=== PATIENT | male | born 1960 | race Caucasian/White ===

== ENCOUNTER 2017-06-11 10:50 | Inpatient (IN) ==
[2017-06-11] MEDS ORDERED: Albuterol 2.5 MG/3 ML NEBULIZER IH ONE (11:21)
--- NOTE | 2017-06-11 11:23 | Anesthesia Evaluation PreOp ---
Date of Encounter: 06/11/17 Time of Encounter: 11:22 - Past History Planned Operation: Laparoscopic Sigmoid Colon Resection Cardiac History: HTN Pulmonary History: Smoker (45 years) WELFARE AIDE History: Denies Any Significant HX Other Medical History: Denies Any Significant HX Anesthesia History: No Prior Anesthetic Complications, Past Anesthesia Alcohol Use: none Drug use: none Medications and Allergies Ibuprofen 800 mg PO TID PRN 05/27/17 [History] Lisinopril [Zestril] 20 mg PO DAILY 05/27/17 [History] hydroCHLOROthiazide [Hydrochlorothiazide] 25 mg PO DAILY 06/11/17 [History] 3 Allergy/AdvReac Type Severity Reaction Status Date / Time Penicillins [PCN] AdvReac Rash Verified 05/27/17 10:34 - Meds/Allergy Pre-op Review Medications Reviewed: Yes Allergies Reviewed: Yes Beta Blockers on Current Med List: No Anesthesia Results - Labs Laboratory Tests 06/02/17 06/02/17 14:50 14:50 WBC 10.1 Hgb 15.7 Hct 42.6 Plt Count 320 Sodium 137 Potassium 3.2 L - Imaging EKG: report reviewed (06/02/2017 SINUS RHYTHM INDETERMINATE AXIS INCOMPLETE RIGHT BUNDLE BRANCH BLOCK) Anesthesia Exam O2 Sat Height 1.75 m Height 1.75 m Height 1.75 m Weight 80.739 kg Weight 80.739 kg Weight 80.739 kg O2 Sat by Pulse Oximetry 98 Vital Signs Temp Pulse Resp BP Pulse Ox 98.2 F 85 18 129/90 98 06/11/17 11:25 06/11/17 11:25 06/11/17 11:25 06/11/17 11:25 06/11/17 11:25 Height: 5'9'' Weight: 178 lbs NPO (# of Hours): 8 Pain Scale: 0 Pain Scale Used: Numeric (1 - 10) - HEENT Pupil (Motor): EOMI Mallampati: II Teeth: Normal Oral Opening: Greater than 3 - WELFARE AIDE LOC: Oriented WELFARE AIDE Motor: Normal RUE, Normal LUE, Normal RLE, Normal LLE, Normal Face WELFARE AIDE Sensory: Normal: RUE, LUE, RLE, LLE, Face - Cardiac Rhythm: Regular Murmur: None - Pulmonary Breath Sounds: bilateral Clear Respiratory Effort: Symmetrical Anesthesia Assess/Plan ASA Score: 2 Modified [place] Scale for Level of Consciousness: Cooperative, oriented, and tranquil Anesthetic Plan: General Monitoring Plan: Standard Monitors Recovery Plan: PACU
[2017-06-11] MEDS ORDERED: Ringers Solution, Lactated 1,000 ML IVC SCH (11:30)
[2017-06-11] MEDS ORDERED: Levofloxacin 500 MG/100 ML 500 MG/100 ML BAG IVPB ONE (11:38)
[2017-06-11] MEDS ORDERED: MetroNIDAZOLE 500 MG/100 ML 500 MG/100 ML BAG IVPB ONE (11:39)
--- NOTE | 2017-06-11 11:57 | History & Physical Report ---
Date of Encounter: 06/11/17 Time of Encounter: 11:56 24 Hour HP Update - Instructions Instructions: If the History and Physical is less than 30 days old and was completed prior to A.M. admission and or procedure and has NOT been updated on calendar day of procedure please complete this update prior to performing procedure. - Update Patient reports changes in Medical Condition: No Changes in examination, assessment, or condition: No Changes in Medication: No Preop tests/diagnostics Reviewed: Yes Surgery Remains Indicated: Yes Consent for Planned Operative Procedure(s) Verified: Yes - Pre-Operative Checklist Preoperative Checklist Indicated: Yes Prophylactic Antibiotic Ordered: Yes Home Medications Include Beta Viki: No Beta Viki Taken Today (Day of Surgery): No Beta Viki Taken Yesterday (Day Prior to Surgery): No Is VTE Prophylaxis Indicated?: Yes - Attending Attestation patient seen and examined. no changes in patient health since last evaluation. okay to proceed with surgery
[2017-06-11] MEDS ORDERED: *HR* FentaNYL (PF) 100 MCG/2 ML VIAL ONE ×2 (12:02→16:15)
[2017-06-11] MEDS ORDERED: Dexamethasone 4 MG/ML VIAL ONE (12:02)
[2017-06-11] MEDS ORDERED: *HR* Midazolam HCl 2 MG/2 ML VIAL ONE (12:02)
[2017-06-11] MEDS ORDERED: Lidocaine -MPF 2% 2 ML VIAL ONE (12:02)
[2017-06-11] MEDS ORDERED: *HR* Rocuronium Bromide 50 MG/5 ML VIAL ONE ×2 (12:02→14:27)
[2017-06-11] MEDS ORDERED: Lidocaine -MPF 4% 5 ML AMPUL ONE (12:02)
[2017-06-11] MEDS ORDERED: Ondansetron 4 MG/2 ML VIAL ONE (12:02)
[2017-06-11] MEDS ORDERED: *HR* Propofol 200 MG/20 ML VIAL IVP ONE (12:02)
[2017-06-11] MEDS ORDERED: *HR* Succinylcholine 200 MG/10 ML VIAL IVP ONE (12:02)
--- NOTE | 2017-06-11 12:05 | History & Physical Report ---
Date of Encounter: 06/11/17 Time of Encounter: 12:05 24 Hour HP Update - Instructions Instructions: If the History and Physical is less than 30 days old and was completed prior to A.M. admission and or procedure and has NOT been updated on calendar day of procedure please complete this update prior to performing procedure. - Update Patient reports changes in Medical Condition: No Changes in examination, assessment, or condition: No Changes in Medication: No Preop tests/diagnostics Reviewed: Yes Surgery Remains Indicated: Yes Consent for Planned Operative Procedure(s) Verified: Yes - Pre-Operative Checklist Preoperative Checklist Indicated: Yes Prophylactic Antibiotic Ordered: Yes Home Medications Include Beta Viki: No Is VTE Prophylaxis Indicated?: Yes
[2017-06-11] MEDS ORDERED: *HR* Phenylephrine 10 MG/ML VIAL ONE (12:57)
[2017-06-11] MEDS ORDERED: *HR* HYDROmorphone (PF) 1 MG/ML SYRINGE IVP PRN (13:37)
[2017-06-11] MEDS ORDERED: *HR* Meperidine 25 MG/ML SYRINGE IVP PRN (13:37)
[2017-06-11] MEDS ORDERED: *HR* Labetalol 20 MG/4 ML SYRINGE IVP PRN (13:37)
[2017-06-11] MEDS ORDERED: Ondansetron 4 MG/2 ML VIAL IVP ONE (13:37)
[2017-06-11] MEDS ORDERED: *HR* Promethazine 25 MG/ML VIAL IVP PRN (13:37)
--- NOTE | 2017-06-11 13:51 | Operative Note ---
Date of procedure: 06/11/17 Pre-op diagnosis: Need for left ureteral identification Post-op diagnosis: same Procedure: Cystoscopy, left ureteral stent placement Implants: 5 [place] open-ended catheter. 16 [place] Lim catheter. Complications: none Anesthesia: GETA Surgeon: Pal Light Was there an assistant professor of forestry present: No Estimated blood loss (cc): 0 Specimen: none Condition: stable Disposition: PACU Procedure in Detail: Indications: Mr. Ash is a 56-year-old male who has a history of a colovesical fistula. He is scheduled for a sigmoidectomy and repair. There is need for left ureteral identification with a stent. He elected to undergo a cystoscopy and left ureteral stent placement. He was aware of the risks of the procedure including but not limited to bleeding, infection, injury to other structures, need for further procedures, stent irritation, need for nephrostomy tube, need for open repair, risks otherwise unforeseen, and the risk of anesthesia. He is willing to proceed. Procedure in Detail: After informed consent was obtained the patient was brought back to the operating room and placed in supine position. A time out was performed. General anesthesia was administered and an endotracheal tube was placed. He was then placed in the lithotomy position. He was prepped and draped in the usual sterile fashion. Cystoscopy was performed. The anterior urethra was normal. There was no evidence of bladder tumors. The ureteral orifices were in the normal orthotopic position. There was no duplication of the ureteral orifices. The Sensor wire was placed in the left ureteral orifice. The 5 [place] open ended catheter was then placed up to 25 cm. The scope was removed. A 16 [place] Lim catheter was in place. The stent was secured to the catheter. Dr. Irvin then proceeded with the sigmoidectomy.
[2017-06-11] MEDS ORDERED: Neostigmine Methylsulfate 3 MG/3 ML SYRINGE ONE (16:07)
[2017-06-11] MEDS ORDERED: *HR* HYDROmorphone 2 MG/ML SYRINGE ONE (16:08)
[2017-06-11] MEDS ORDERED: Lacri-Lube 3.5 GM TUBE ONE (16:16)
--- NOTE | 2017-06-11 16:20 | Operative Note ---
Date of procedure: 06/11/17 Pre-op diagnosis: colovesical fistula Post-op diagnosis: same Procedure: No procedure performed. Intraoperative evaluation of the bladder Anesthesia: SOPHIE Surgeon: Eugene Miller Was there an surgical supply assistant present: No Estimated blood loss (cc): 0 Specimen: none Condition: stable Disposition: no change Procedure in Detail: I was called to the operating room by Dr. Irvin to evaluate the bladder after takedown of a suspected colovesical fistula. The area of suspected adhesion was on the right posterior aspect of the bladder. The entire involved area was approximately 2 cm in diameter. No obvious involvement of the bladder lumen. The peritoneum in this area was quite reactive. Because the area was small without obvious involvement of the bladder lumen I elected to test the area for leak prior to performing a formal repair. The bladder was filled with 150 mL of fluid and appropriate distention of the bladder was witnessed. There was no fluid seen emanating from the area of concern. At that point I elected not to proceed with any bladder repair as I felt that the risk for complications from ureteral injury or a large cystotomy were greater then with observation. Plan to leave the catheter in place at least 7 days and perform a formal cystogram prior to removal.
--- NOTE | 2017-06-11 17:33 | Anesthesia Evaluation Post Op ---
Date of Encounter: 06/11/17 Time of Encounter: 17:33 - Vital Signs Vital Signs: Vital Signs/O2 Sat, Most Current Temp Pulse Resp BP Pulse Ox 97.7 F 90 16 129/83 100 06/11/17 17:01 06/11/17 17:21 06/11/17 17:21 06/11/17 17:21 06/11/17 17:21 - Lungs Lungs: Clear Ascult./Percussion - Airway Airway: Non-obstructed - Cardiovascular Regular Rate - Mental Status Mental Status: Alert & Oriented, Answers Appropriately, Baseline Status - Pain Pain Scale: 2 Pain Scale used: Numeric (1 - 10) - Nausea Vomiting Nausea Vomiting: Not Present - Hydration Hydration: NPO, Lim catheter - Discharge PostOp Status: Transfer Patient to floor
[2017-06-11] MEDS ORDERED: Naloxone 0.4 MG/ML INJ IVP PRN ×2 (17:59)
[2017-06-11] MEDS ORDERED: *HR* Morphine 2 MG/ML SYRINGE IVP ONE (17:59)
[2017-06-11] MEDS ORDERED: *HR* Metoprolol 5 MG/5 ML VIAL IVP PRN (17:59)
[2017-06-11 18:40] LABS: Basophils % 0.1 %; Eosinophils % 0.1 %; Hematocrit 40.6 % (37.5-50.1); Hemoglobin 14.1 g/dL (12.9-16.9); Immature Granulocytes % 0.4 % (0-4); Lymphocytes # 0.7 K/mcL (0.6-4.6); Lymphocytes % 4.8 %; Mean Corpuscular HGB Conc 34.7 g/dL (31.6-35.5); Mean Corpuscular Hemoglobin 30.6 pg (28.0-33.3); Mean Corpuscular Volume 88.1 fL (83.0-100.0); Mean Platelet Volume 9.3 fL (9.4-12.4); Monocytes # 0.7 K/mcL (0.0-1.3); Monocytes % 5.1 %; Neutrophils # 12.6 K/mcL (1.6-8.9); Platelet Count 304 K/mcL (140-400); Red Blood Count 4.61 M/mcL (4.19-5.50); Red Cell Distribution Width 13.2 % (11.5-14.5); Segmented Neutrophils % 89.5 %
[2017-06-11 18:59] LABS: BUN/Creatinine Ratio 15 (6-26); Blood Urea Nitrogen 14 mg/dL (6-20); Calcium 8.2 mg/dL (8.6-10.3); Carbon Dioxide 24 mEq/L (23-29); Chloride 108 mEq/L (98-107); Glucose 211 mg/dL (70-105); Osmolality,Calculated 295 (280-300); Phosphorous 2.7 mg/dL (2.7-4.5); Potassium 3.9 mEq/L (3.5-5.1); Sodium 139 mEq/L (136-145); eGFR For African Americans > 60 (> 60); eGFR For Non-African Americans > 60 (> 60)
[2017-06-11] MEDS: *HR* Morphine 30 MG/ 30 ML PCA IVC PRN (23:06)
[2017-06-11] MEDS: D5% in Lactated Ringers 1,000 ML IVC SCH (23:23)
[2017-06-11] MEDS: 0.9 % Sodium Chloride 1,000 ML IVC SCH ×2 (23:25→23:26)
[2017-06-12] MEDS: Nicotine 14 MG PATCH.TD24 TD SCH ×2 (00:48→07:53)
[2017-06-12 07:43] LABS: BUN/Creatinine Ratio 13 (6-26); Blood Urea Nitrogen 12 mg/dL (6-20); Calcium 8.2 mg/dL (8.6-10.3); Carbon Dioxide 26 mEq/L (23-29); Chloride 108 mEq/L (98-107); Glucose 217 mg/dL (70-105); Magnesium 2.1 mg/dL (1.6-2.6); Osmolality,Calculated 294 (280-300); Phosphorous 1.6 mg/dL (2.7-4.5); Potassium 3.8 mEq/L (3.5-5.1); Sodium 139 mEq/L (136-145); eGFR For African Americans > 60 (> 60); eGFR For Non-African Americans > 60 (> 60)
[2017-06-12] MEDS: D5% in Lactated Ringers 1,000 ML IVC SCH (07:54)
[2017-06-12 08:20] LABS: Basophils % 0.1 %; Hematocrit 37.1 % (37.5-50.1); Hemoglobin 12.7 g/dL (12.9-16.9); Immature Granulocytes % 0.4 % (0-4); Lymphocytes % 7.6 %; Mean Corpuscular HGB Conc 34.2 g/dL (31.6-35.5); Mean Corpuscular Hemoglobin 30.1 pg (28.0-33.3); Mean Corpuscular Volume 87.9 fL (83.0-100.0); Mean Platelet Volume 9.6 fL (9.4-12.4); Monocytes % 7.8 %; Neutrophils # 10.8 K/mcL (1.6-8.9); Platelet Count 278 K/mcL (140-400); Red Blood Count 4.22 M/mcL (4.19-5.50); Red Cell Distribution Width 13.1 % (11.5-14.5); Segmented Neutrophils % 84.1 %
[2017-06-12] MEDS ORDERED: *HR* Dextrose 50 % in Water (Syg) 50 ML SYRINGE IVP PRN (12:20)
[2017-06-12] MEDS ORDERED: Dextrose Gel 15 GM/37.5 ML TUBE PO PRN ×2 (12:20)
[2017-06-12] MEDS ORDERED: D5% in Water 1,000 ML IVC PRN (12:20)
--- NOTE | 2017-06-12 12:21 | General Surgery Progress Note ---
<Ravi Rodriguez - Last Filed: 06/12/17 12:18> Date of Encounter: 06/12/17 Time of Encounter: 12:18 - Assessment and Plan (1) Colovesical fistula Current Visit: Yes Status: Acute POD 1 - Left Ureteral stent placement by Dr. Pal Light, and Sigmoidectomy by Dr. Steve Irvin. patient is clinically and hemodynamically stable. - Urology following - replace electrolytes; phos replaced - npo - IS q1hr - ambulated with assistance TID - ct pain management - serial abd exams (2) Tobacco abuse Current Visit: Yes Status: Acute patch for support (3) Elevated blood sugar Current Visit: Yes Status: Acute SSI low dose. closely monitor BG Subjective Patient reports: pain is less, flatus, no bowel movement, afebrile Narrative: denies nausea /vomiting Objective Vital Signs - Last 8 Hours Temp Pulse Resp BP Pulse Ox 06/12/17 12:04 98.3 F 88 16 130/83 95 06/12/17 05:11 97.8 F 87 15 133/75 96 Intake and Output 06/11/17 06/12/17 06/12/17 23:59 07:59 15:59 Intake Total 0 / 0 1060 / 1060 Output Total 1880 / 1880 835 / 835 400 / 400 Balance -1880 / -1880 225 / 225 -400 / -400 Intake: IV Fluids 1000 / 1000 D5% & Lact. Ringers 1000 Ml Bag 1000 / 1000 1,000 ML @ 125 mls/hr IVC .Q8H [facility] Rx#:[id number] Oral 0 / 0 60 / 60 Output: Urine 0 / 0 Estimated Blood Loss 700 / 700 Urine Amount (Catheter) 435 / 435 Catheter 655 / 655 800 / 800 400 / 400 Wound Drainage 90 / 90 35 / 35 Left Lower Abdomen 50 / 50 35 / 35 Other: Weight 80.775 kg Blood Glucose* 197 210 161 Patient Weight 06/12/17 23:59 Weight 80.775 kg - General physical appearance well developed, well nourished, no distress - Eyes normal ocular movement - Respiratory normal expansion, normal respiratory effort, clear to percussion, clear to auscultation - Cardiovascular Cardiovascular exam: Present: RRR - Abdomen Abdomen: Present: bowel sounds present, soft, distended, tender - Psychiatric oriented to time, oriented to person, oriented to place, speech is normal, memory intact - Labs 06/12/17 05:41 06/12/17 05:41 Diabetes panel 06/11/17 06/12/17 Range/Units 18:13 05:41 Sodium 139 139 (136-145) mEq/L Potassium 3.9 3.8 (3.5-5.1) mEq/L Chloride 108 H 108 H (98-107) mEq/L Carbon Dioxide 24 26 (23-29) mEq/L BUN 14 12 (6-20) mg/dL Creatinine 0.95 0.96 (0.70-1.30) mg/dL Glucose 211 H 217 H (70-105) mg/dL Calcium 8.2 L 8.2 L (8.6-10.3) mg/dL Calcium panel 06/11/17 06/12/17 Range/Units 18:13 05:41 Calcium 8.2 L 8.2 L (8.6-10.3) mg/dL Phosphorus 2.7 1.6 L (2.7-4.5) mg/dL Pituitary panel 06/11/17 06/12/17 Range/Units 18:13 05:41 Sodium 139 139 (136-145) mEq/L Potassium 3.9 3.8 (3.5-5.1) mEq/L Chloride 108 H 108 H (98-107) mEq/L Carbon Dioxide 24 26 (23-29) mEq/L BUN 14 12 (6-20) mg/dL Creatinine 0.95 0.96 (0.70-1.30) mg/dL Glucose 211 H 217 H (70-105) mg/dL Calcium 8.2 L 8.2 L (8.6-10.3) mg/dL Adrenal panel 06/11/17 06/12/17 Range/Units 18:13 05:41 Sodium 139 139 (136-145) mEq/L Potassium 3.9 3.8 (3.5-5.1) mEq/L Chloride 108 H 108 H (98-107) mEq/L Carbon Dioxide 24 26 (23-29) mEq/L BUN 14 12 (6-20) mg/dL Creatinine 0.95 0.96 (0.70-1.30) mg/dL Glucose 211 H 217 H (70-105) mg/dL Calcium 8.2 L 8.2 L (8.6-10.3) mg/dL - VTE Documentation of Mechanical Device: Intermittent pneumatic compression device Consult Discharge Plan - Plan Referrals: NONE,PCP [Primary Care Provider] - Patricia Nelson [Family Provider] - <BrandeeSteve Gomez - Last Filed: 06/12/17 13:10> Date of Encounter: 06/12/17 Objective Vital Signs - Last 8 Hours Temp Pulse Resp BP Pulse Ox 06/12/17 12:04 98.3 F 88 16 130/83 95 06/12/17 05:11 97.8 F 87 15 133/75 96 Intake and Output 06/11/17 06/12/17 06/12/17 23:59 07:59 15:59 Intake Total 0 / 0 1060 / 1060 Output Total 1880 / 1880 835 / 835 400 / 400 Balance -1880 / -1880 225 / 225 -400 / -400 Intake: IV Fluids 1000 / 1000 D5% & Lact. Ringers 1000 Ml Bag 1000 / 1000 1,000 ML @ 125 mls/hr IVC .Q8H [facility] Rx#:[id number] Oral 0 / 0 60 / 60 Output: Urine 0 / 0 Estimated Blood Loss 700 / 700 Urine Amount (Catheter) 435 / 435 Catheter 655 / 655 800 / 800 400 / 400 Wound Drainage 90 / 90 35 / 35 Left Lower Abdomen 50 / 50 35 / 35 Other: Weight 80.775 kg Blood Glucose* 197 210 161 Patient Weight 06/12/17 23:59 Weight 80.775 kg - Labs 06/12/17 05:41 06/12/17 05:41 Diabetes panel 06/11/17 06/12/17 Range/Units 18:13 05:41 Sodium 139 139 (136-145) mEq/L Potassium 3.9 3.8 (3.5-5.1) mEq/L Chloride 108 H 108 H (98-107) mEq/L Carbon Dioxide 24 26 (23-29) mEq/L BUN 14 12 (6-20) mg/dL Creatinine 0.95 0.96 (0.70-1.30) mg/dL Glucose 211 H 217 H (70-105) mg/dL Calcium 8.2 L 8.2 L (8.6-10.3) mg/dL Calcium panel 06/11/17 06/12/17 Range/Units 18:13 05:41 Calcium 8.2 L 8.2 L (8.6-10.3) mg/dL Phosphorus 2.7 1.6 L (2.7-4.5) mg/dL Pituitary panel 06/11/17 06/12/17 Range/Units 18:13 05:41 Sodium 139 139 (136-145) mEq/L Potassium 3.9 3.8 (3.5-5.1) mEq/L Chloride 108 H 108 H (98-107) mEq/L Carbon Dioxide 24 26 (23-29) mEq/L BUN 14 12 (6-20) mg/dL Creatinine 0.95 0.96 (0.70-1.30) mg/dL Glucose 211 H 217 H (70-105) mg/dL Calcium 8.2 L 8.2 L (8.6-10.3) mg/dL Adrenal panel 06/11/17 06/12/17 Range/Units 18:13 05:41 Sodium 139 139 (136-145) mEq/L Potassium 3.9 3.8 (3.5-5.1) mEq/L Chloride 108 H 108 H (98-107) mEq/L Carbon Dioxide 24 26 (23-29) mEq/L BUN 14 12 (6-20) mg/dL Creatinine 0.95 0.96 (0.70-1.30) mg/dL Glucose 211 H 217 H (70-105) mg/dL Calcium 8.2 L 8.2 L (8.6-10.3) mg/dL - Attending Attestation I have personally seen and examined the patient. I have reviewed pertinent labs , imaging, progress notes, including this one. I agree with the above assessment and plan and wish to include the following... 56M POD #1 s/p lap converted to open sigmoidectomy with primary anastomosis; cont with current pain regimen monitor cardiac and pulm status IS usage, albuterol PRN 2/2 surgery and smoking history NPO, NG if vomits; anticipating post op ileus cont dvt prophylaxis; MIVF, replete lyte encouage ambulation
--- NOTE | 2017-06-12 13:53 | Operative Note ---
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 The patient was placed in the supine position. Mechanical DVT prophylaxis was initiated. The patient underwent smooth induction of general endotracheal anesthesia. The patient was prepped and draped in the usual fashion. Preoperative antibiotics were given. A timeout was held identifying the correct patient, pathology, and procedure. Everyone was in agreement and we began a procedure. Prior to my procedure, fiona placed L sided ureteral stent. Please see his procedure note for details. Incision to Conversion I started bycreating a supraumbilical incision and via open Lilly technique entered into the abdomen. I then inserted the 10 trocar followed by the camera to visualize the intraabdominal cavity. I then created a 5 mm incision suprapubically and inserted the 5 mm trocar under direct visualization. Roughly 1 handbreadth lateral to the umbilical incision I created another 5 mm incision on the left and inserted another 12 mm trocar under direct visualization on the right. I then inserted the nontraumatic instruments into the 5 mm ports and began the procedure. I was able to identify the sigmoid colon and, starting on the lateral aspect began mobilizing. I was able to identify the white line of toldt toward the pelvic brim. I encountered dense adhesions the further into the pelvis that i went. In addition, the density of the adhesion made the tissue planes difficult to identify. Due to concern for injury bowel or causing itragenic injury, I elected to open. I elongated the incision and entered the abdomen with electrocautery. I loaded the zack-irwin self retaining retractor and continued the procedure. Mobilization to Resection I continued mobilizing laterally toward the pelvic brim. I was able to identify the L ureter by palpating the open ended stent. I began lysing adhesions along the abdominal wall and bladder. The adhesions became denser. in addition there was alot of oozing that was encountered. All bleeding controlled with electrocautery. I then began to mobilize medially. I scored the peritoneum proximally until i found the vascular pedicle. I was able to identify the KRISTIN pedical and ligated it with ligaure. I then continued ligating wth the impact machine towards the rectum. I then used blunt dissection and finger fracture I was dense adhesions until i encountered the densest adhesion, which was the fistulous tract. I was able to take this down and free the imflamed colonic segment. There was a divertculum embedded within the bladder. I called urology to assess the severity of the fistula. Please see their note for details. I then scored again along the mesentery and created a window along the mesorectum. It should be stated that bleeding was encountered which was controlled with hemoclips, Impact ligasure, and suture ligasure. I then used the contour stapler to staple across and stapled distally passed the tinea coli and the pelvic brim to ensure I stapled distal to the sigmoid colon. I then used the automatic purse saúl device to resect the proximal staple line and create a purse string around the distal end. I then dilated using the serial dilators up to size 29. I then inserted the anvil and secured it with the suture. Anastamosis to Closure Down below, ,my life enrichment assistant dilated the recum to a size 29, inserted the stapler and used it to draw the male component of the stapler. I connected that with the female component of the anvil. I then had the stapler removed (the anastamotic ring was intact) removed and tested the anastamosis by filling the pelvis with saline and insufflating air into the rectum. I look for air bubbles , but there was none to be found. I tested the anastamosis twice and saw no air bubbles, ensuring our anastamosis was secure. I then elected not to give the patient an ileostomy due to this finding. At this point, it was time to close. I closed the 12mm fascial inciison with vicryl suture in a figure of 8 fashion. I closed the fascia with looped PDS suture in a running fashion. Prior to this I placed a pelvic drain (19fr charisse drain). I then closed the deep dermal layer with vicryl sutures and 4-0 monocryl in a running subcuticular fashion to close the skin. the remaing incisions were closed with 4-0 monocryl in an interrupted fashion. In addition, the drain was secured to the skin with silk suture. All incision were sealed with dermabond. It should be stated that I did use 0.5% Marcaine as a local anesthetic. The patient tolerated the procedure well and did go back to PACU in stable condition.
[2017-06-12] MEDS: *HR* Morphine 30 MG/ 30 ML PCA IVC PRN (15:24)
[2017-06-12] MEDS: *HR* Enoxaparin 40 MG/0.4 ML SYRINGE SQ SCH (18:29)
[2017-06-12] MEDS: Insulin LISPRO 300 UNITS/3 ML VIAL SQ SCH ×2 (18:29→23:41)
[2017-06-12] MEDS: D5% in 0.45% NACL w KCl 20 MEQ/1,000 ML MLS IVC SCH (18:29)
[2017-06-13] MEDS: Insulin LISPRO 300 UNITS/3 ML VIAL SQ SCH ×3 (05:43→19:33)
--- NOTE | 2017-06-13 08:28 | Urology Progress Note ---
Date of Encounter: 06/13/17 Time of Encounter: 08:26 - Assessment and Plan (1) Colovesical fistula Current Visit: Yes Status: Acute Assessment and plan: urine is clear and cath is draining well. plan is to perform a cystogram 7 days from surgery (wednesday) before considering cath removal. urology service will set this up. If pt is still in hospital will arrange here. if patient is discharged will perform as outpatient and follow in office same day. Progress Note Subjective: feels better Narrative: able to sit at bedside yesterday. cath not "too bothersome" Objective Initial Vital Signs Temp Pulse Resp BP Pulse Ox 98.2 F 85 18 129/90 98 06/11/17 11:25 06/11/17 11:25 06/11/17 11:25 06/11/17 11:25 06/11/17 11:25 - General physical appearance Present: no distress - Additional Exam castillo with clear urine. - Labs 06/12/17 05:41 06/12/17 05:41 - VTE Documentation of Mechanical Device: Intermittent pneumatic compression device Consult Discharge Plan - Plan Referrals: NONE,PCP [Primary Care Provider] - Patricia Nelson [Family Provider] -
[2017-06-13 09:17] LABS: Basophils % 0.3 %; Eosinophils # 0.2 K/mcL (0.0-0.6); Eosinophils % 2.1 %; Hematocrit 35.6 % (37.5-50.1); Hemoglobin 12.2 g/dL (12.9-16.9); Immature Granulocytes % 0.3 % (0-4); Lymphocytes # 1.8 K/mcL (0.6-4.6); Lymphocytes % 16.5 %; Mean Corpuscular HGB Conc 34.3 g/dL (31.6-35.5); Mean Corpuscular Hemoglobin 30.3 pg (28.0-33.3); Mean Corpuscular Volume 88.3 fL (83.0-100.0); Mean Platelet Volume 8.8 fL (9.4-12.4); Monocytes # 0.8 K/mcL (0.0-1.3); Monocytes % 7.6 %; Neutrophils # 7.9 K/mcL (1.6-8.9); Platelet Count 252 K/mcL (140-400); Red Blood Count 4.03 M/mcL (4.19-5.50); Red Cell Distribution Width 13.3 % (11.5-14.5); Segmented Neutrophils % 73.2 %
[2017-06-13] MEDS: Nicotine 14 MG PATCH.TD24 TD SCH (09:31)
[2017-06-13] MEDS: *HR* Enoxaparin 40 MG/0.4 ML SYRINGE SQ SCH (09:32)
[2017-06-13 09:41] LABS: Magnesium 2.2 mg/dL (1.6-2.6); Phosphorous 1.5 mg/dL (2.7-4.5)
[2017-06-13 09:42] LABS: BUN/Creatinine Ratio 15 (6-26); Blood Urea Nitrogen 11 mg/dL (6-20); Carbon Dioxide 23 mEq/L (23-29); Chloride 108 mEq/L (98-107); Glucose 167 mg/dL (70-105); Osmolality,Calculated 287 (280-300); Potassium 3.8 mEq/L (3.5-5.1); Sodium 137 mEq/L (136-145); eGFR For African Americans > 60 (> 60); eGFR For Non-African Americans > 60 (> 60)
[2017-06-13] MEDS: *HR* Morphine 30 MG/ 30 ML PCA IVC PRN (10:40)
--- NOTE | 2017-06-13 12:18 | General Surgery Progress Note ---
<Layla Thomas - Last Filed: 06/13/17 13:23> Date of Encounter: 06/13/17 Time of Encounter: 10:15 - Assessment and Plan (1) Colovesical fistula Current Visit: Yes Status: Acute POD #2 s/p laproscopic converted to open sigmoidectomy with primary anastomosis - Urology following (L ureteral stent placed by Dr. Light), continue castillo cath per urology - Encourage IS hourly while awake - Continue ambulation with assist TID - Electrolyte replacement as needed - NPO - Continue pain management - Serial abdominal exams (2) Tobacco abuse Current Visit: Yes Status: Acute -14mg TD patch substituted for 21mg to provide better relief of cravings (3) Elevated blood sugar Current Visit: Yes Status: Acute -SSI low dose, adjust as needed (4) DVT prophylaxis Current Visit: Yes Status: Acute - Lovenox 40mg SubQ in morning - Ambulation in halls TID with assistance - SCDs Subjective Patient reports: no new complaints, feels better, still having pain, pain is less Narrative: Denies nausea, vomiting. Reports belching. Ambulating with assistance in hallways. Objective Vital Signs - Last 8 Hours Temp Pulse Resp BP Pulse Ox 06/13/17 11:54 98.4 F 95 16 136/84 94 06/13/17 11:00 98.4 F 95 16 136/84 94 06/13/17 09:30 95 06/13/17 07:58 157/91 06/13/17 07:08 98.5 F 90 17 155/100 95 06/13/17 05:23 98.4 F 91 14 129/79 95 Intake and Output 06/12/17 06/13/17 06/13/17 23:59 07:59 15:59 Intake Total 0 / 0 0 / 0 Output Total 0 / 0 675 / 675 Balance 0 / 0 -675 / -675 Intake: Oral 0 / 0 0 / 0 Output: Urine 0 / 0 675 / 675 Catheter 0 / 0 Other: Meal NPO Weight 80.4 kg Blood Glucose* 154 181 Patient Weight 06/13/17 23:59 Weight 80.4 kg - General physical appearance well developed, well nourished, no distress - Eyes normal ocular movement - Respiratory normal expansion, normal respiratory effort, clear to auscultation - Cardiovascular Cardiovascular exam: Present: RRR - Abdomen Abdomen: Present: bowel sounds present, soft, tender. Absent: distended - Neurologic CN 2-12 grossly intact - Psychiatric oriented to time, oriented to person, oriented to place, speech is normal, memory intact - Labs 06/13/17 09:07 06/13/17 09:07 Diabetes panel 06/13/17 Range/Units 09:07 Sodium 137 (136-145) mEq/L Potassium 3.8 (3.5-5.1) mEq/L Chloride 108 H (98-107) mEq/L Carbon Dioxide 23 (23-29) mEq/L BUN 11 (6-20) mg/dL Creatinine 0.75 (0.70-1.30) mg/dL Glucose 167 H (70-105) mg/dL Calcium 8.0 L (8.6-10.3) mg/dL Calcium panel 06/13/17 06/13/17 Range/Units 09:07 09:07 Calcium 8.0 L (8.6-10.3) mg/dL Phosphorus 1.5 L (2.7-4.5) mg/dL Pituitary panel 06/13/17 Range/Units 09:07 Sodium 137 (136-145) mEq/L Potassium 3.8 (3.5-5.1) mEq/L Chloride 108 H (98-107) mEq/L Carbon Dioxide 23 (23-29) mEq/L BUN 11 (6-20) mg/dL Creatinine 0.75 (0.70-1.30) mg/dL Glucose 167 H (70-105) mg/dL Calcium 8.0 L (8.6-10.3) mg/dL Adrenal panel 06/13/17 Range/Units 09:07 Sodium 137 (136-145) mEq/L Potassium 3.8 (3.5-5.1) mEq/L Chloride 108 H (98-107) mEq/L Carbon Dioxide 23 (23-29) mEq/L BUN 11 (6-20) mg/dL Creatinine 0.75 (0.70-1.30) mg/dL Glucose 167 H (70-105) mg/dL Calcium 8.0 L (8.6-10.3) mg/dL - VTE Documentation of Mechanical Device: Intermittent pneumatic compression device Consult Discharge Plan - Plan Referrals: NONE,PCP [Primary Care Provider] - Patricia Nelson [Family Provider] - <Wilmer Irvinlizbet Gomez - Last Filed: 06/13/17 14:17> Date of Encounter: 06/13/17 Objective Vital Signs - Last 8 Hours Temp Pulse Resp BP Pulse Ox 06/13/17 11:54 98.4 F 95 16 136/84 94 06/13/17 11:00 98.4 F 95 16 136/84 94 06/13/17 09:30 95 06/13/17 07:58 157/91 06/13/17 07:08 98.5 F 90 17 155/100 95 Intake and Output 06/12/17 06/13/17 06/13/17 23:59 07:59 15:59 Intake Total 0 / 0 0 / 0 Output Total 0 / 0 675 / 675 Balance 0 / 0 -675 / -675 Intake: Oral 0 / 0 0 / 0 Output: Urine 0 / 0 675 / 675 Catheter 0 / 0 Other: Meal NPO Weight 80.4 kg Blood Glucose* 154 181 Patient Weight 06/13/17 23:59 Weight 80.4 kg - Labs 06/13/17 09:07 06/13/17 09:07 Diabetes panel 06/13/17 Range/Units 09:07 Sodium 137 (136-145) mEq/L Potassium 3.8 (3.5-5.1) mEq/L Chloride 108 H (98-107) mEq/L Carbon Dioxide 23 (23-29) mEq/L BUN 11 (6-20) mg/dL Creatinine 0.75 (0.70-1.30) mg/dL Glucose 167 H (70-105) mg/dL Calcium 8.0 L (8.6-10.3) mg/dL Calcium panel 06/13/17 06/13/17 Range/Units 09:07 09:07 Calcium 8.0 L (8.6-10.3) mg/dL Phosphorus 1.5 L (2.7-4.5) mg/dL Pituitary panel 06/13/17 Range/Units 09:07 Sodium 137 (136-145) mEq/L Potassium 3.8 (3.5-5.1) mEq/L Chloride 108 H (98-107) mEq/L Carbon Dioxide 23 (23-29) mEq/L BUN 11 (6-20) mg/dL Creatinine 0.75 (0.70-1.30) mg/dL Glucose 167 H (70-105) mg/dL Calcium 8.0 L (8.6-10.3) mg/dL Adrenal panel 06/13/17 Range/Units 09:07 Sodium 137 (136-145) mEq/L Potassium 3.8 (3.5-5.1) mEq/L Chloride 108 H (98-107) mEq/L Carbon Dioxide 23 (23-29) mEq/L BUN 11 (6-20) mg/dL Creatinine 0.75 (0.70-1.30) mg/dL Glucose 167 H (70-105) mg/dL Calcium 8.0 L (8.6-10.3) mg/dL - Attending Attestation I have personally seen and examined the patient. I have reviewed pertinent labs , imaging, progress notes, including this one. I agree with the above assessment and plan and wish to include the following... 56M POD#2 s/p lap conv to open sigmoidectomy with primary anastamosis 2/2 diverticulitis complicated by stricture and colovesicular fistula; afebrile, pain controlled, appropriately tender on exam; ambulating; feeling distended and increased belching; continue with pain control, encourage ambulation; await return of bowel function. patient may need NG tube for impending ileus; castillo per urology
[2017-06-13] MEDS ORDERED: Potassium Phosphate 44 MEQ in 0.9 % Sodium Chloride 250 ML IVPB ONE (12:32)
[2017-06-13] MEDS: Nicotine 21 MG PATCH.TD24 TD SCH (15:39)
[2017-06-14] MEDS: Insulin LISPRO 300 UNITS/3 ML VIAL SQ SCH ×4 (01:16→18:12)
[2017-06-14] MEDS: D5% in 0.45% NACL w KCl 20 MEQ/1,000 ML MLS IVC SCH (06:25)
[2017-06-14] MEDS: *HR* Enoxaparin 40 MG/0.4 ML SYRINGE SQ SCH (07:28)
[2017-06-14] MEDS: Nicotine 21 MG PATCH.TD24 TD SCH (07:29)
[2017-06-14 07:55] LABS: BUN/Creatinine Ratio 15 (6-26); Blood Urea Nitrogen 10 mg/dL (6-20); Calcium 8.1 mg/dL (8.6-10.3); Carbon Dioxide 24 mEq/L (23-29); Chloride 108 mEq/L (98-107); Glucose 144 mg/dL (70-105); Osmolality,Calculated 288 (280-300); Potassium 3.6 mEq/L (3.5-5.1); Sodium 138 mEq/L (136-145); eGFR For African Americans > 60 (> 60); eGFR For Non-African Americans > 60 (> 60)
--- NOTE | 2017-06-14 09:23 | General Surgery Progress Note ---
<Sayra Estrada - Last Filed: 06/14/17 11:06> Date of Encounter: 06/14/17 Time of Encounter: 10:00 - Assessment and Plan (1) Colovesical fistula Current Visit: Yes Status: Acute 56M POD#2 s/p lap conv to open sigmoidectomy with primary anastamosis 2/2 diverticulitis complicated by stricture and colovesicular fistula continue with pain control continue to monitor bowel function patient may need NG tube for impending ileus continue to encourage ambulation as tolerated Encourage incentive spirometry Replace electrolytes, prn castillo care per urology (2) Elevated blood sugar Current Visit: Yes Status: Acute Continue accuchecks. Continue SSI low dose, adjust as needed (3) Tobacco abuse Current Visit: Yes Status: Acute Continue management (4) DVT prophylaxis Current Visit: Yes Status: Acute -Lovenox 40mg SubQ in morning - Ambulation in halls TID with assistance - SCDs Subjective Patient reports: feels better, still having pain, no flatus, no bowel movement, afebrile Narrative: Rates abdominal pain 5/10 , feels pain has improved. States "I feel really, really good". Continues belching. Denies appetite this AM. No N/V. No chest pain. No SOB. Objective Vital Signs - Last 8 Hours Temp Pulse Resp BP Pulse Ox 06/14/17 06:45 97.7 F 85 16 137/85 96 06/14/17 05:02 98.6 F 85 15 134/85 97 Intake and Output 06/13/17 06/14/17 06/14/17 23:59 07:59 15:59 Intake Total 250 / 250 1000 / 1000 Output Total 1600 / 1600 370 / 370 0 / 0 Balance -1350 / -1350 630 / 630 0 / 0 Intake: IV Fluids 250 / 250 1000 / 1000 KCl 20mEq IN D5%-0.45 NACL 20 1000 / 1000 meq In 1,000 ml @ 75 mls/hr IVC .[id number] [facility] Rx#:[id number] Oral 0 / 0 0 / 0 Output: Urine 0 / 0 350 / 350 Catheter 1600 / 1600 Wound Drainage 20 / 20 0 / 0 Left Lower Abdomen 20 / 20 0 / 0 Other: Meal NPO Percent of Meal Consumed 0% Blood Glucose* 168 160 - General physical appearance no distress - Eyes normal ocular movement - Respiratory normal expansion, normal respiratory effort, clear to percussion - Cardiovascular Cardiovascular exam: Present: RRR - Abdomen Abdomen: Present: bowel sounds present, soft, tender. Absent: rebound - Incision Incision: Present: clean and dry, intact - Psychiatric oriented to person, oriented to place, speech is normal - Labs 06/13/17 09:07 06/14/17 04:38 Diabetes panel 06/13/17 06/14/17 Range/Units 09:07 04:38 Sodium 137 138 (136-145) mEq/L Potassium 3.8 3.6 (3.5-5.1) mEq/L Chloride 108 H 108 H (98-107) mEq/L Carbon Dioxide 23 24 (23-29) mEq/L BUN 11 10 (6-20) mg/dL Creatinine 0.75 0.68 L (0.70-1.30) mg/dL Glucose 167 H 144 H (70-105) mg/dL Calcium 8.0 L 8.1 L (8.6-10.3) mg/dL Calcium panel 06/13/17 06/13/17 06/14/17 Range/Units 09:07 09:07 04:38 Calcium 8.0 L 8.1 L (8.6-10.3) mg/dL Phosphorus 1.5 L 2.0 L (2.7-4.5) mg/dL Pituitary panel 06/13/17 06/14/17 Range/Units 09:07 04:38 Sodium 137 138 (136-145) mEq/L Potassium 3.8 3.6 (3.5-5.1) mEq/L Chloride 108 H 108 H (98-107) mEq/L Carbon Dioxide 23 24 (23-29) mEq/L BUN 11 10 (6-20) mg/dL Creatinine 0.75 0.68 L (0.70-1.30) mg/dL Glucose 167 H 144 H (70-105) mg/dL Calcium 8.0 L 8.1 L (8.6-10.3) mg/dL Adrenal panel 06/13/17 06/14/17 Range/Units 09:07 04:38 Sodium 137 138 (136-145) mEq/L Potassium 3.8 3.6 (3.5-5.1) mEq/L Chloride 108 H 108 H (98-107) mEq/L Carbon Dioxide 23 24 (23-29) mEq/L BUN 11 10 (6-20) mg/dL Creatinine 0.75 0.68 L (0.70-1.30) mg/dL Glucose 167 H 144 H (70-105) mg/dL Calcium 8.0 L 8.1 L (8.6-10.3) mg/dL - VTE Documentation of Mechanical Device: Intermittent pneumatic compression device Consult Discharge Plan - Plan Referrals: NONE,PCP [Primary Care Provider] - Patricia Nelson [Family Provider] - <Steve Irvin - Last Filed: 06/14/17 11:35> Date of Encounter: 06/14/17 Objective Vital Signs - Last 8 Hours Temp Pulse Resp BP Pulse Ox 06/14/17 10:38 98 F 89 16 165/91 96 06/14/17 06:45 97.7 F 85 16 137/85 96 06/14/17 05:02 98.6 F 85 15 134/85 97 Intake and Output 06/13/17 06/14/17 06/14/17 23:59 07:59 15:59 Intake Total 250 / 250 1000 / 1000 0 / 0 Output Total 1600 / 1600 370 / 370 200 / 200 Balance -1350 / -1350 630 / 630 -200 / -200 Intake: IV Fluids 250 / 250 1000 / 1000 KCl 20mEq IN D5%-0.45 NACL 20 1000 / 1000 meq In 1,000 ml @ 75 mls/hr IVC .[id number] [facility] Rx#:[id number] Oral 0 / 0 0 / 0 0 / 0 Output: Urine 0 / 0 350 / 350 200 / 200 Catheter 1600 / 1600 Wound Drainage 20 / 20 0 / 0 Left Lower Abdomen 20 / 20 0 / 0 Other: Meal NPO Percent of Meal Consumed 0% Blood Glucose* 168 160 - Labs 06/13/17 09:07 06/14/17 04:38 Diabetes panel 06/14/17 Range/Units 04:38 Sodium 138 (136-145) mEq/L Potassium 3.6 (3.5-5.1) mEq/L Chloride 108 H (98-107) mEq/L Carbon Dioxide 24 (23-29) mEq/L BUN 10 (6-20) mg/dL Creatinine 0.68 L (0.70-1.30) mg/dL Glucose 144 H (70-105) mg/dL Calcium 8.1 L (8.6-10.3) mg/dL Calcium panel 06/14/17 Range/Units 04:38 Calcium 8.1 L (8.6-10.3) mg/dL Phosphorus 2.0 L (2.7-4.5) mg/dL Pituitary panel 06/14/17 Range/Units 04:38 Sodium 138 (136-145) mEq/L Potassium 3.6 (3.5-5.1) mEq/L Chloride 108 H (98-107) mEq/L Carbon Dioxide 24 (23-29) mEq/L BUN 10 (6-20) mg/dL Creatinine 0.68 L (0.70-1.30) mg/dL Glucose 144 H (70-105) mg/dL Calcium 8.1 L (8.6-10.3) mg/dL Adrenal panel 06/14/17 Range/Units 04:38 Sodium 138 (136-145) mEq/L Potassium 3.6 (3.5-5.1) mEq/L Chloride 108 H (98-107) mEq/L Carbon Dioxide 24 (23-29) mEq/L BUN 10 (6-20) mg/dL Creatinine 0.68 L (0.70-1.30) mg/dL Glucose 144 H (70-105) mg/dL Calcium 8.1 L (8.6-10.3) mg/dL - Attending Attestation I have personally seen and examined the patient. I have reviewed pertinent labs , imaging, progress notes, including this one. I agree with the above assessment and plan and wish to include the following... 56M POD#3 s/p lap conv to open sigmoidectomy; pain controlled; non peritoneal; abdominal distension, but improved; slight erythema of wound; cont to await return of bowel function; no cellulitis/wound infection at present, but will cont to monitor; ambulate as tolerated
[2017-06-15] MEDS: D5% in 0.45% NACL w KCl 20 MEQ/1,000 ML MLS IVC SCH ×3 (04:27→19:23)
[2017-06-15 07:27] LABS: Basophils % 0.2 %; Eosinophils # 0.2 K/mcL (0.0-0.6); Eosinophils % 2.3 %; Hematocrit 38.5 % (37.5-50.1); Hemoglobin 13.3 g/dL (12.9-16.9); Immature Granulocytes % 0.4 % (0-4); Lymphocytes # 1.1 K/mcL (0.6-4.6); Mean Corpuscular HGB Conc 34.5 g/dL (31.6-35.5); Mean Corpuscular Hemoglobin 30.2 pg (28.0-33.3); Mean Corpuscular Volume 87.3 fL (83.0-100.0); Monocytes # 0.6 K/mcL (0.0-1.3); Monocytes % 6.9 %; Neutrophils # 7.1 K/mcL (1.6-8.9); Platelet Count 319 K/mcL (140-400); Red Blood Count 4.41 M/mcL (4.19-5.50); Segmented Neutrophils % 78.2 %
[2017-06-15 07:35] LABS: BUN/Creatinine Ratio 21 (6-26); Blood Urea Nitrogen 12 mg/dL (6-20); Calcium 7.3 mg/dL (8.6-10.3); Carbon Dioxide 19 mEq/L (23-29); Chloride 111 mEq/L (98-107); Glucose 159 mg/dL (70-105); Osmolality,Calculated 291 (280-300); Potassium 3.8 mEq/L (3.5-5.1); Sodium 139 mEq/L (136-145); eGFR For African Americans > 60 (> 60); eGFR For Non-African Americans > 60 (> 60)
--- NOTE | 2017-06-15 07:40 | General Surgery Progress Note ---
<NatalieSayra - Last Filed: 06/15/17 10:58> Date of Encounter: 06/15/17 Time of Encounter: 07:40 - Assessment and Plan (1) Colovesical fistula Current Visit: Yes Status: Acute 56M POD#4 s/p lap conv to open sigmoidectomy with primary anastamosis 2/2 diverticulitis complicated by stricture and colovesicular fistula continue with pain control continue to monitor bowel function for appropriate progression Will advance diet cautiously. May begin liquid sips 250 ml/shift continue to encourage ambulation as tolerated Encourage incentive spirometry Replace electrolytes, prn castillo care per urology (2) Elevated blood sugar Current Visit: Yes Status: Acute Continue accuchecks. Continue SSI low dose, adjust as needed (3) Tobacco abuse Current Visit: Yes Status: Acute Continue management (4) DVT prophylaxis Current Visit: Yes Status: Acute -Lovenox 40mg SubQ in morning - Ambulation in halls TID with assistance - SCDs Subjective Patient reports: feels better, pain is less, voiding w/o difficulty, flatus Narrative: Patient reports pain at a 2-3/10. Awaits initiation of diet. Objective Vital Signs - Last 8 Hours Temp Pulse Resp BP Pulse Ox 06/15/17 07:32 97.5 F L 104 16 156/98 97 06/15/17 04:02 98.4 F 101 16 152/96 97 Intake and Output 06/14/17 06/14/17 06/15/17 15:59 23:59 07:59 Intake Total 400 / 400 255 / 255 600 / 600 Output Total 400 / 400 330 / 330 270 / 270 Balance 0 / 0 -75 / -75 330 / 330 Intake: IV Fluids 400 / 400 255 / 255 600 / 600 KCl 20mEq IN D5%-0.45 NACL 20 400 / 400 0 / 0 600 / 600 meq In 1,000 ml @ 75 mls/hr IVC .[id number] [facility] Rx#:[id number] Potassium Phosphate 22 MEQ In 0 255 / 255 .9 % Sodium Chloride 250 ML @ 40 mls/hr IVPB ONCE ONE Rx#: [id number] Oral 0 / 0 0 / 0 0 / 0 Output: Urine 300 / 300 Straight Cath 200 / 200 Catheter 200 / 200 0 / 0 250 / 250 Wound Drainage 0 / 0 30 / 30 20 / 20 Left Lower Abdomen 0 / 0 30 / 30 20 / 20 Other: Meal NPO Percent of Meal Consumed 0% Weight 81.3 kg Blood Glucose* 168 168 Patient Weight 06/15/17 23:59 Weight 81.3 kg - Labs 06/15/17 06:57 06/15/17 06:57 Diabetes panel 06/14/17 06/15/17 Range/Units 04:38 06:57 Sodium 138 139 (136-145) mEq/L Potassium 3.6 3.8 (3.5-5.1) mEq/L Chloride 108 H 111 H (98-107) mEq/L Carbon Dioxide 24 19 L (23-29) mEq/L BUN 10 12 (6-20) mg/dL Creatinine 0.68 L 0.56 L (0.70-1.30) mg/dL Glucose 144 H 159 H (70-105) mg/dL Calcium 8.1 L 7.3 L (8.6-10.3) mg/dL Calcium panel 06/14/17 06/15/17 Range/Units 04:38 06:57 Calcium 8.1 L 7.3 L (8.6-10.3) mg/dL Phosphorus 2.0 L 2.0 L (2.7-4.5) mg/dL Pituitary panel 06/14/17 06/15/17 Range/Units 04:38 06:57 Sodium 138 139 (136-145) mEq/L Potassium 3.6 3.8 (3.5-5.1) mEq/L Chloride 108 H 111 H (98-107) mEq/L Carbon Dioxide 24 19 L (23-29) mEq/L BUN 10 12 (6-20) mg/dL Creatinine 0.68 L 0.56 L (0.70-1.30) mg/dL Glucose 144 H 159 H (70-105) mg/dL Calcium 8.1 L 7.3 L (8.6-10.3) mg/dL Adrenal panel 06/14/17 06/15/17 Range/Units 04:38 06:57 Sodium 138 139 (136-145) mEq/L Potassium 3.6 3.8 (3.5-5.1) mEq/L Chloride 108 H 111 H (98-107) mEq/L Carbon Dioxide 24 19 L (23-29) mEq/L BUN 10 12 (6-20) mg/dL Creatinine 0.68 L 0.56 L (0.70-1.30) mg/dL Glucose 144 H 159 H (70-105) mg/dL Calcium 8.1 L 7.3 L (8.6-10.3) mg/dL - VTE Documentation of Mechanical Device: Intermittent pneumatic compression device Consult Discharge Plan - Plan Referrals: NONE,PCP [Primary Care Provider] - Patricia Nelson [Family Provider] - <Steve Irvin - Last Filed: 06/15/17 12:44> Date of Encounter: 06/15/17 Objective Vital Signs - Last 8 Hours Temp Pulse Resp BP Pulse Ox 06/15/17 11:39 97.5 F L 98 15 159/91 15 06/15/17 10:18 97 06/15/17 07:32 97.5 F L 104 16 156/98 97 Intake and Output 06/14/17 06/15/17 06/15/17 23:59 07:59 15:59 Intake Total 255 / 255 600 / 600 Output Total 330 / 330 270 / 270 80 / 80 Balance -75 / -75 330 / 330 -80 / -80 Intake: IV Fluids 255 / 255 600 / 600 KCl 20mEq IN D5%-0.45 NACL 20 0 / 0 600 / 600 meq In 1,000 ml @ 75 mls/hr IVC .[id number] [facility] Rx#:[id number] Potassium Phosphate 22 MEQ In 0 255 / 255 .9 % Sodium Chloride 250 ML @ 40 mls/hr IVPB ONCE ONE Rx#: [id number] Oral 0 / 0 0 / 0 Output: Urine 300 / 300 Catheter 0 / 0 250 / 250 Wound Drainage 30 / 30 20 / 20 80 / 80 Left Lower Abdomen 30 / 30 20 / 20 80 / 80 Other: Meal NPO Weight 81.3 kg Blood Glucose* 168 186 Patient Weight 06/15/17 23:59 Weight 81.3 kg - Labs 06/15/17 06:57 06/15/17 06:57 Diabetes panel 06/15/17 Range/Units 06:57 Sodium 139 (136-145) mEq/L Potassium 3.8 (3.5-5.1) mEq/L Chloride 111 H (98-107) mEq/L Carbon Dioxide 19 L (23-29) mEq/L BUN 12 (6-20) mg/dL Creatinine 0.56 L (0.70-1.30) mg/dL Glucose 159 H (70-105) mg/dL Calcium 7.3 L (8.6-10.3) mg/dL Calcium panel 06/15/17 Range/Units 06:57 Calcium 7.3 L (8.6-10.3) mg/dL Phosphorus 2.0 L (2.7-4.5) mg/dL Pituitary panel 06/15/17 Range/Units 06:57 Sodium 139 (136-145) mEq/L Potassium 3.8 (3.5-5.1) mEq/L Chloride 111 H (98-107) mEq/L Carbon Dioxide 19 L (23-29) mEq/L BUN 12 (6-20) mg/dL Creatinine 0.56 L (0.70-1.30) mg/dL Glucose 159 H (70-105) mg/dL Calcium 7.3 L (8.6-10.3) mg/dL Adrenal panel 06/15/17 Range/Units 06:57 Sodium 139 (136-145) mEq/L Potassium 3.8 (3.5-5.1) mEq/L Chloride 111 H (98-107) mEq/L Carbon Dioxide 19 L (23-29) mEq/L BUN 12 (6-20) mg/dL Creatinine 0.56 L (0.70-1.30) mg/dL Glucose 159 H (70-105) mg/dL Calcium 7.3 L (8.6-10.3) mg/dL - Attending Attestation I have personally seen and examined the patient. I have reviewed pertinent labs , imaging, progress notes, including this one. I agree with the above assessment and plan and wish to include the following... POD#4 s/p lap conv to open sigmoidectomy; doing well post operatively; pain controlled; with bowel function today; still distended on exam; non peritoneal; will plan for sips of clears today; still suspicious for post op ileus; replete lytes; activity as tolerated; observing for continued bowel function
[2017-06-15] MEDS: Insulin LISPRO 300 UNITS/3 ML VIAL SQ SCH ×3 (08:07→19:03)
[2017-06-15] MEDS: Nicotine 21 MG PATCH.TD24 TD SCH (10:11)
[2017-06-15] MEDS: *HR* Enoxaparin 40 MG/0.4 ML SYRINGE SQ SCH (10:12)
[2017-06-15] MEDS ORDERED: Potassium Phosphate 44 MEQ in 0.9 % Sodium Chloride 250 ML IVPB ONE (10:44)
[2017-06-15] MEDS ORDERED: *HR* Metoprolol 5 MG/5 ML VIAL IVP ONE (20:47)
[2017-06-15] MEDS: *HR* Morphine 30 MG/ 30 ML PCA IVC PRN (23:08)
[2017-06-16] MEDS: Insulin LISPRO 300 UNITS/3 ML VIAL SQ SCH ×5 (00:33→20:35)
[2017-06-16] MEDS: D5% in 0.45% NACL w KCl 20 MEQ/1,000 ML MLS IVC SCH ×2 (00:46→13:13)
[2017-06-16] MEDS: *HR* Enoxaparin 40 MG/0.4 ML SYRINGE SQ SCH (05:51)
[2017-06-16 05:54] LABS: Basophils % 0.1 %; Eosinophils # 0.1 K/mcL (0.0-0.6); Eosinophils % 1.5 %; Hematocrit 40.1 % (37.5-50.1); Immature Granulocytes % 0.4 % (0-4); Lymphocytes # 1.5 K/mcL (0.6-4.6); Lymphocytes % 15.8 %; Mean Corpuscular HGB Conc 34.9 g/dL (31.6-35.5); Mean Corpuscular Hemoglobin 30.7 pg (28.0-33.3); Mean Corpuscular Volume 87.9 fL (83.0-100.0); Mean Platelet Volume 8.6 fL (9.4-12.4); Monocytes # 0.8 K/mcL (0.0-1.3); Monocytes % 8.1 %; Neutrophils # 7.1 K/mcL (1.6-8.9); Platelet Count 326 K/mcL (140-400); Red Blood Count 4.56 M/mcL (4.19-5.50); Red Cell Distribution Width 13.3 % (11.5-14.5); Segmented Neutrophils % 74.1 %
[2017-06-16 06:08] LABS: Albumin 3.5 g/dL (3.5-5.7); BUN/Creatinine Ratio 21 (6-26); Blood Urea Nitrogen 15 mg/dL (6-20); Calcium 8.3 mg/dL (8.6-10.3); Carbon Dioxide 25 mEq/L (23-29); Chloride 107 mEq/L (98-107); Glucose 178 mg/dL (70-105); Magnesium 2.4 mg/dL (1.6-2.6); Osmolality,Calculated 285 (280-300); Phosphorous 2.4 mg/dL (2.7-4.5); Potassium 4.2 mEq/L (3.5-5.1); Sodium 135 mEq/L (136-145); eGFR For African Americans > 60 (> 60); eGFR For Non-African Americans > 60 (> 60)
--- NOTE | 2017-06-16 07:45 | General Surgery Progress Note ---
<Sayra Estrada - Last Filed: 06/16/17 13:26> Date of Encounter: 06/16/17 Time of Encounter: 07:44 - Assessment and Plan (1) Colovesical fistula Current Visit: Yes Status: Acute 56M POD#5 s/p lap conv to open sigmoidectomy with primary anastamosis 2/2 diverticulitis complicated by stricture and colovesicular fistula Continue with pain control: D/C [employer]PRESENT[employer]IVE pump, percocet for pain control. Plan to transition to non-opioids, if patient tolerates Continue to monitor bowel function for appropriate progression Will advance diet cautiously.Clear liquids with dietary supplements Continue to encourage ambulation as tolerated, with physical therapy consult Encourage incentive spirometry Replace electrolytes, prn - Lim care per urology (2) Elevated blood sugar Current Visit: Yes Status: Acute Continue accuchecks. Continue SSI, adjust as needed (3) Hypertension Current Visit: Yes Status: Chronic Elevated BP overnight, requiring IV lopressor. Plan to resume patient on home medication Qualifiers: Hypertension type: unspecified Qualified Code(s): I10 - Essential (primary ) hypertension (4) Tobacco abuse Current Visit: Yes Status: Acute Continue management (5) DVT prophylaxis Current Visit: Yes Status: Acute -Lovenox 40mg SubQ in morning - Ambulation in halls TID with assistance - SCDs Subjective Patient reports: feels better, pain is less, tolerating liquids well, flatus, bowel movement, afebrile Narrative: Elevated BP overnight, resolved with IV lopressor. Objective Vital Signs - Last 8 Hours Temp Pulse Resp BP Pulse Ox 06/16/17 07:17 98.5 F 88 14 148/95 97 06/16/17 04:23 97.7 F 85 14 141/93 97 Intake and Output 06/15/17 06/15/17 06/16/17 15:59 23:59 07:59 Intake Total 118 / 118 1000 / 1000 Output Total 160 / 160 1085 / 1085 350 / 350 Balance -160 / -160 -967 / -967 650 / 650 Intake: IV Fluids 1000 / 1000 KCl 20mEq IN D5%-0.45 NACL 20 1000 / 1000 meq In 1,000 ml @ 75 mls/hr IVC .[id number] [facility] Rx#:[id number] Oral 118 / 118 0 / 0 Output: Urine 450 / 450 Catheter 300 / 300 250 / 250 Wound Drainage 160 / 160 335 / 335 100 / 100 Left Lower Abdomen 160 / 160 335 / 335 100 / 100 Other: Meal NPO Stool Size Smear Stool Color Blood Tinged # Bowel Movements 1 Weight 81.148 kg Blood Glucose* 186 216 168 Patient Weight 06/16/17 23:59 Weight 81.148 kg - General physical appearance well developed, no distress - Eyes normal ocular movement - Respiratory normal expansion, normal respiratory effort, clear to auscultation - Abdomen Abdomen: Present: bowel sounds present, soft, non tender - Neurologic normal coordination - Psychiatric oriented to time, oriented to person, oriented to place, speech is normal - Labs 06/16/17 05:43 06/16/17 05:43 Diabetes panel 06/16/17 Range/Units 05:43 Sodium 135 L (136-145) mEq/L Potassium 4.2 (3.5-5.1) mEq/L Chloride 107 (98-107) mEq/L Carbon Dioxide 25 (23-29) mEq/L BUN 15 (6-20) mg/dL Creatinine 0.71 (0.70-1.30) mg/dL Glucose 178 H (70-105) mg/dL Calcium 8.3 L (8.6-10.3) mg/dL Albumin 3.5 (3.5-5.7) g/dL Calcium panel 06/16/17 Range/Units 05:43 Calcium 8.3 L (8.6-10.3) mg/dL Phosphorus 2.4 L (2.7-4.5) mg/dL Albumin 3.5 (3.5-5.7) g/dL Pituitary panel 06/16/17 Range/Units 05:43 Sodium 135 L (136-145) mEq/L Potassium 4.2 (3.5-5.1) mEq/L Chloride 107 (98-107) mEq/L Carbon Dioxide 25 (23-29) mEq/L BUN 15 (6-20) mg/dL Creatinine 0.71 (0.70-1.30) mg/dL Glucose 178 H (70-105) mg/dL Calcium 8.3 L (8.6-10.3) mg/dL Adrenal panel 06/16/17 Range/Units 05:43 Sodium 135 L (136-145) mEq/L Potassium 4.2 (3.5-5.1) mEq/L Chloride 107 (98-107) mEq/L Carbon Dioxide 25 (23-29) mEq/L BUN 15 (6-20) mg/dL Creatinine 0.71 (0.70-1.30) mg/dL Glucose 178 H (70-105) mg/dL Calcium 8.3 L (8.6-10.3) mg/dL Albumin 3.5 (3.5-5.7) g/dL - VTE Documentation of Mechanical Device: Intermittent pneumatic compression device Consult Discharge Plan - Plan Referrals: Steve Irvin MD [Non-Partnered Physician] - 06/24/17 1:35 pm Lakesha Carter CNP [Advanced Practice Nurse] - Pal Light MD [Partnered Physician] - 06/18/17 9:30 am <Steve Irvin - Last Filed: 06/16/17 16:47> Date of Encounter: 06/16/17 Objective Vital Signs - Last 8 Hours Temp Pulse Resp BP Pulse Ox 06/16/17 14:50 98.7 F 90 15 153/95 98 06/16/17 10:24 98.5 F 84 16 156/97 99 Intake and Output 06/16/17 06/16/17 06/16/17 07:59 15:59 23:59 Intake Total 1000 / 1000 120 / 120 Output Total 350 / 350 885 / 885 Balance 650 / 650 -765 / -765 Intake: IV Fluids 1000 / 1000 KCl 20mEq IN D5%-0.45 NACL 20 1000 / 1000 meq In 1,000 ml @ 75 mls/hr IVC .[id number] [facility] Rx#:[id number] Oral 0 / 0 120 / 120 Output: Catheter 250 / 250 575 / 575 Wound Drainage 100 / 100 310 / 310 Left Lower Abdomen 100 / 100 310 / 310 Other: Meal NPO Percent of Meal Consumed 0% Weight 81.148 kg Blood Glucose* 168 Patient Weight 06/16/17 23:59 Weight 81.148 kg - Labs 06/16/17 05:43 06/16/17 05:43 Diabetes panel 06/16/17 Range/Units 05:43 Sodium 135 L (136-145) mEq/L Potassium 4.2 (3.5-5.1) mEq/L Chloride 107 (98-107) mEq/L Carbon Dioxide 25 (23-29) mEq/L BUN 15 (6-20) mg/dL Creatinine 0.71 (0.70-1.30) mg/dL Glucose 178 H (70-105) mg/dL Calcium 8.3 L (8.6-10.3) mg/dL Albumin 3.5 (3.5-5.7) g/dL Calcium panel 06/16/17 Range/Units 05:43 Calcium 8.3 L (8.6-10.3) mg/dL Phosphorus 2.4 L (2.7-4.5) mg/dL Albumin 3.5 (3.5-5.7) g/dL Pituitary panel 06/16/17 Range/Units 05:43 Sodium 135 L (136-145) mEq/L Potassium 4.2 (3.5-5.1) mEq/L Chloride 107 (98-107) mEq/L Carbon Dioxide 25 (23-29) mEq/L BUN 15 (6-20) mg/dL Creatinine 0.71 (0.70-1.30) mg/dL Glucose 178 H (70-105) mg/dL Calcium 8.3 L (8.6-10.3) mg/dL Adrenal panel 06/16/17 Range/Units 05:43 Sodium 135 L (136-145) mEq/L Potassium 4.2 (3.5-5.1) mEq/L Chloride 107 (98-107) mEq/L Carbon Dioxide 25 (23-29) mEq/L BUN 15 (6-20) mg/dL Creatinine 0.71 (0.70-1.30) mg/dL Glucose 178 H (70-105) mg/dL Calcium 8.3 L (8.6-10.3) mg/dL Albumin 3.5 (3.5-5.7) g/dL - Attending Attestation I have personally seen and examined the patient. I have reviewed pertinent labs , imaging, progress notes, including this one. I agree with the above assessment and plan and wish to include the following... POD#5 s/p lap conv to open sigmoidectomy; now with return of bowel function - okay to start clears; - activity as tolerated - pain control with PO pain meds - SLIV when tolerating PO - will re-evaluate in PM before advancing diet
[2017-06-16] MEDS: Nicotine 21 MG PATCH.TD24 TD SCH (09:16)
[2017-06-16] MEDS ORDERED: *HR* Morphine 2 MG/ML SYRINGE IVP PRN (10:49)
[2017-06-16] MEDS ORDERED: Acetaminophen 325 MG TABLET PO PRN (10:49)
[2017-06-16] MEDS ORDERED: *HR* OxyCODONE/APAP 5/325 TABLET PO PRN (10:49)
[2017-06-16] MEDS: hydroCHLOROthiazide 25 MG TABLET PO SCH (13:13)
[2017-06-16] MEDS: Lisinopril 20 MG TABLET PO SCH (13:13)
[2017-06-16] MEDS: Ibuprofen 800 MG TABLET PO SCH ×2 (18:20→20:16)
[2017-06-17] MEDS: D5% in 0.45% NACL w KCl 20 MEQ/1,000 ML MLS IVC SCH (04:22)
[2017-06-17] MEDS: *HR* Enoxaparin 40 MG/0.4 ML SYRINGE SQ SCH (07:17)
[2017-06-17] MEDS: Insulin LISPRO 300 UNITS/3 ML VIAL SQ SCH ×4 (08:56→21:13)
[2017-06-17] MEDS: Lisinopril 20 MG TABLET PO SCH (08:58)
[2017-06-17] MEDS: hydroCHLOROthiazide 25 MG TABLET PO SCH (08:58)
[2017-06-17] MEDS: Ibuprofen 800 MG TABLET PO SCH ×3 (08:58→21:12)
--- NOTE | 2017-06-17 08:59 | General Surgery Progress Note ---
Date of Encounter: 06/17/17 Time of Encounter: 08:58 - Assessment and Plan (1) Colovesical fistula Current Visit: Yes Status: Acute POD#6 s/p lap conv to open sigmoidectomy advance to soft diet SLIV plan for cystogram per urology in AM activity as tolerated Subjective Patient reports: no new complaints, feels better, still having pain, pain is less, tolerating liquids well, flatus, bowel movement, afebrile Objective Vital Signs - Last 8 Hours Temp Pulse Resp BP Pulse Ox 06/17/17 07:45 97.9 F 81 18 117/80 97 06/17/17 04:18 98.2 F 79 16 119/79 96 Intake and Output 06/16/17 06/17/17 06/17/17 23:59 07:59 15:59 Intake Total 120 / 120 1000 / 1000 Output Total 640 / 640 550 / 550 Balance -520 / -520 450 / 450 Intake: IV Fluids 1000 / 1000 KCl 20mEq IN D5%-0.45 NACL 20 1000 / 1000 meq In 1,000 ml @ 60 mls/hr IVC .[id number] KISHA Rx#:[id number] Oral 120 / 120 0 / 0 Output: Catheter 600 / 600 450 / 450 Urethral (Lim) 0 / 0 Wound Drainage 40 / 40 100 / 100 Left Lower Abdomen 40 / 40 100 / 100 Other: Weight 81.2 kg Blood Glucose* 198 150 Patient Weight 06/17/17 23:59 Weight 81.2 kg - General physical appearance no distress - Respiratory normal expansion, normal respiratory effort - Cardiovascular Cardiovascular exam: Present: RRR - Abdomen Abdomen: Present: soft, tender (appropriately tender) - Incision Incision: Present: clean and dry, intact - Neurologic CN 2-12 grossly intact - Labs 06/16/17 05:43 06/16/17 05:43 - VTE Documentation of Mechanical Device: Intermittent pneumatic compression device Consult Discharge Plan - Plan Referrals: Steve Irvin MD [Non-Partnered Physician] - 06/24/17 1:35 pm Lakesha Carter CNP [Advanced Practice Nurse] - Pal Light MD [Partnered Physician] - 06/18/17 9:30 am
[2017-06-17] MEDS: Nicotine 21 MG PATCH.TD24 TD SCH (09:00)
[2017-06-18] MEDS: *HR* Enoxaparin 40 MG/0.4 ML SYRINGE SQ SCH (06:21)
--- NOTE | 2017-06-18 07:42 | Discharge Summary ---
<Sayra Estrada - Last Filed: 06/18/17 12:30> Date of Encounter: 06/18/17 Time of Encounter: 07:41 - Discharge Diagnosis (1) Colovesical fistula Priority: Primary Status: Acute (2) Elevated blood sugar Priority: Secondary Status: Acute (3) Hypertension Priority: Secondary Status: Chronic Qualifiers: Hypertension type: unspecified Qualified Code(s): I10 - Essential (primary ) hypertension (4) Tobacco abuse Priority: Secondary Status: Acute (5) DVT prophylaxis Priority: Secondary Status: Acute - Discharge Medications Prescriptions: Ondansetron ODT [Zofran ODT] 4 mg SL Q6HR #15 tab.rapdis OxyCODONE/APAP 5/325 [Percocet 5/325 MG] 1 each PO Q6HR PRN #10 tablet PRN Reason: Pain Docusate [Colace] 100 mg PO BID #10 capsule Ibuprofen [Motrin] 800 mg PO TID #42 tablet Home Medications: Ibuprofen 800 mg PO TID PRN 05/27/17 [History] Lisinopril [Zestril] 20 mg PO DAILY 05/27/17 [History] hydroCHLOROthiazide [Hydrochlorothiazide] 25 mg PO DAILY 06/11/17 [History] Docusate [Colace] 100 mg PO BID #10 capsule 06/18/17 [Rx] Ibuprofen [Motrin] 800 mg PO TID #42 tablet 06/18/17 [Rx] Ondansetron ODT [Zofran ODT] 4 mg SL Q6HR #15 tab.rapdis 06/18/17 [Rx] OxyCODONE/APAP 5/325 [Percocet 5/325 MG] 1 each PO Q6HR PRN #10 tablet 06/18/17 [Rx] Allergies/Adverse Reactions: 3 Allergy/AdvReac Type Severity Reaction Status Date / Time Penicillins [PCN] AdvReac Rash Verified 05/27/17 10:34 General Surgery Exam Initial Vital Signs Temp Pulse Resp BP Pulse Ox 98.2 F 85 18 129/90 98 06/11/17 11:25 06/11/17 11:25 06/11/17 11:25 06/11/17 11:25 06/11/17 11:25 - General physical appearance well developed, no distress, no pain - Eyes normal ocular movement - Respiratory normal expansion, normal respiratory effort - Cardiovascular Additional Comments: normal rhythm - Abdomen Abdomen general surgery: Present: bowel sounds present, soft - Incision Incision: Present: clean and dry, intact, approximated Date of admission: 06/11/17 17:51 Primary care physician: PCP NONE Consults: 06/16/17 10:47 Consult to Physical Therapy [CONS] Routine Comment: Evaluate, develop and implement POC Reason for Consult: mobilization Discharging clinician: Sayra Estrada Anticipated date of discharge: 06/18/17 - Patient Status Disposition: Home, Self-Care Condition: Good Functional capacity at discharge: uses cane/walker Overall status at discharge: patient is progressing back to baseline - Discharge Instructions Follow Up With: Steve Irvin MD [Non-Partnered Physician] - 06/24/17 4:05 pm Additional Instructions: 1. No pushing, pulling, or lifting greater than 15 lbs for 4-6 weeks. 2. You may shower beginning today, but no tub baths, soaking, or swimming for 2 weeks. 3. You may resume driving when you are off narcotics and are safe to react in a car. 4. Take ibuprofen every 8 hours for discomfort. If this does not relieve discomfort, you may take the as needed Percocet. Take narcotics as directed. Do not take more narcotics then directed and do not share your narcotics with any other person. Do not drink alcohol while on narcotics. 5. Take stool softeners (Colace) or a water based laxative (Miralax) while taking narcotics. You may hold for loose stools. 6. Report any fevers greater than 100.5F, increase abdominal discomfort, drainage that looks like pus, increased redness or pain at the surgical site, or any vomiting. 7. Report any new onset pain, including that in the calves, shortness of breath , or rapid heartbeat. 8. Follow-up in the office as directed with Dr. Irvin. 9. If you were prescribed antibiotics, do not stop them without talking to your provider. 10. We recommend you commence smoking cessation with the support of your primary care provider. - Diet and Activity Activity: increase activity as tolerated Diet: other (soft diet, with chopped or ground meat, followed by conservative advancement of diet. ) - Hospital Course Hospital course: Mr. Ash is a 56 year old male with a past medical history of HTN, tobacco abuse who underwent a laproscopic converted to open sigmoidectomy with primary anastomosis 2/2 to diverticulitis complicated by stricture and colovesicular fistula, requiring a left ureteral stent placement due a colovesical fistula. Patient was monitored closely in immediate post-operative term due to concern for post-operative ileus. Urology remained on consult and followed the patient for post-operative care. Pt underwent cystogram per urology, with successful removal of castillo catheter. Following evidence of stable clinical disposition, patient was released for discharge with instructions for home care and follow- up outpatient with relevant providers. - Time Spent with Patient Total time spent providing and/or coordinating discharge services: Procedures and tests throughout hospitalization: ITS Impressions Cystourethrogram 06/18/17 07:00 IMPRESSION: Unremarkable cystogram. During voiding after contrast administration, there was evidence of urinary debris in the Castillo catheter tubing, which may represent underlying urinary tract infection. Recommend correlation with urinalysis as clinically indicated. D/ / 06/18/2017 11:10:12 Pipo Narvaez MD / juan Interpreting Provider: Pipo Narvaez MD Labs on day of discharge: Labs from last 24 hours 06/17/17 06/17/17 06/17/17 21:01 16:31 11:28 POC Glucose 151 H 129 H 240 H 06/17/17 07:48 POC Glucose 150 H <Steve Irvin - Last Filed: 06/18/17 20:45> Date of Encounter: 06/18/17 - Discharge Diagnosis (1) Colovesical fistula Status: Acute General Surgery Exam Initial Vital Signs Temp Pulse Resp BP Pulse Ox 98.2 F 85 18 129/90 98 06/11/17 11:25 06/11/17 11:25 06/11/17 11:25 06/11/17 11:25 06/11/17 11:25 Date of admission: 06/11/17 17:51 Primary care physician: Lakesha Carter CNP Consults: 06/16/17 10:47 Consult to Physical Therapy [CONS] Routine Comment: Evaluate, develop and implement POC Reason for Consult: mobilization - Hospital Course Hospital course: Mr. Ash is a 56 year old male - Time Spent with Patient Total time spent providing and/or coordinating discharge services: Labs on day of discharge: Labs from last 24 hours 06/17/17 06/17/17 21:01 16:31 POC Glucose 151 H 129 H - Impressions ITS Impressions Cystourethrogram 06/18/17 07:00 IMPRESSION: Unremarkable cystogram. During voiding after contrast administration, there was evidence of urinary debris in the Castillo catheter tubing, which may represent underlying urinary tract infection. Recommend correlation with urinalysis as clinically indicated. D/ / 06/18/2017 11:10:12 Pipo Narvaez MD / juan Interpreting Provider: Pipo Narvaez MD - Attending Attestation I have personally seen and examined the patient. I have reviewed pertinent labs , imaging, progress notes, including this one. I agree with the above assessment and plan and wish to include the following... 56M POD#7 s/p sigmoidectomy 2/2 colovesicular fistula 2/2 diverticulitis; tolerating diet, pain controlled; having bowel function, no distension on my exam; met discharge criteria; okay for discharge with follow up in 2 weeks;
[2017-06-18] MEDS: Lisinopril 20 MG TABLET PO SCH (10:06)
[2017-06-18] MEDS: hydroCHLOROthiazide 25 MG TABLET PO SCH (10:06)
[2017-06-18] MEDS: Nicotine 21 MG PATCH.TD24 TD SCH (10:07)
[2017-06-18] MEDS: Ibuprofen 800 MG TABLET PO SCH (10:08)
[2017-06-18] MEDS: Insulin LISPRO 300 UNITS/3 ML VIAL SQ SCH ×2 (10:10→12:15)
[2017-06-18 10:15] VITALS: BP 118/78
== END 2017-06-18 12:55 | disposition home or self-care (01) | DRG 330 ==
LOC: SAMDAY 10:50 → 2SOUTHHOLD 17:51 → 3ANU 18:02
PROVIDERS: ADMIT Surgery; ATTEND Surgery